=== PATIENT | female | born 1990 | race Caucasian/White ===

== ENCOUNTER 2021-04-28 13:36 | Emergency (ER) | payer OTHER ==
[~2021-04-28] VITALS: Ht 165.1 cm; Wt 89.3 kg
[2021-04-28] MEDS ORDERED: ONDANSETRON 2MG/ML, 2ML ONE (14:25)
[2021-04-28] MEDS ORDERED: HYDROmorphone 1 MG/ML, 1ML INJ ONE (14:25)
[2021-04-28] MEDS ORDERED: SODIUM CHLORIDE 0.9% 1,000ML IVBOLUS ONE (14:30)
[2021-04-28] MEDS ORDERED: ONDANSETRON 2MG/ML, 2ML IVPush ONE (14:30)
[2021-04-28] MEDS ORDERED: HYDROmorphone 1 MG/ML, 1ML INJ IVPush PRN (14:30)
[2021-04-28] MEDS ORDERED: SODIUM CHLORIDE FLUSH 10ML SYR IVF ONE (14:30)
[2021-04-28 14:39] LABS: BASOPHILS % (AUTO) 0 % (0-1); EOSINOPHILS % (AUTO) 0 % (1-7); LYMPHOCYTES % (AUTO) 9 % (22-44); MEAN CORPUSCULAR HEMOGLOBIN 31.2 pg (27.0-34.8); MEAN CORPUSCULAR HGB CONC 34.8 g/dL (32.4-35.8); MONOCYTES % (AUTO) 4 % (2-9); NEUTROPHILS % (AUTO) 87 % (42-75); PLATELET COUNT 306 x10^3/uL (130-400); RED BLOOD COUNT 4.89 x10^6/uL (3.82-5.3); RED CELL DISTRIBUTION WIDTH 13.1 % (9.6-15.2)
--- NOTE | 2021-04-28 14:49 | NUR ---
PT. IS A & O X 4 WITH A GCS OF 15. PT. HAS C/O SUDDEN ONSET CRAMPING AND SPOTTING TODAY AT APPROXIMATELY NOON. PT. REPORTS BEING 10 WEEKS . PT.'S LUNGS ARE CTA THROUGHOUT. S1S2 NOTED WITHOUT MURMURS, RUBS OR GALLOPS. PT. IS PINK, WARM AND DRY. CAP REFILL IS BRISK, LESS THAN 2 SECONDS. PT.'S ABD. IS SOFT AND FLAT WITH BS + X 4 QUADS. PULSES ARE +2 THROUGHOUT ALL EXTREMITIES. IV ACCESS ESTABLISHED AND THE PT. WAS MEDICATED FOR PAIN ORDERED. NS BOLUS IS INFUSING AND THE PT. WAS TAKEN TO ULTRASOUND. SIDERAILS REMAIN UP X 2. REPORT GIVEN TO THE ON COMING RN.
[2021-04-28 14:50] LABS: ALANINE AMINOTRANSFERASE 61 U/L (12-78); ALBUMIN 4.1 g/dL (3.4-5.0); ANION GAP 7 mmol/L (5-15); CALCIUM 9.2 mg/dL (8.5-10.1); CHLORIDE 108 mmol/L (98-107); CREATININE 0.81 mg/dL (0.55-1.02)
[2021-04-28 14:53] VITALS: BP 116/77
[2021-04-28 15:10] LABS: ALKALINE PHOSPHATASE 79 U/L (45-117); BILIRUBIN,TOTAL 0.3 mg/dL (0.2-1.0); TOTAL PROTEIN 7.6 g/dL (6.4-8.2)
--- NOTE | 2021-04-28 16:17 | NUR ---
Patient given discharge instructions and they have confirmed that they understand the instructions. Patient ambulatory with steady gait.
== END 2021-04-28 16:38 | disposition home or self-care (01) ==
LOC: ED 16:00
DX: O03.9 Complete or unspecified spontaneous abortion without complication (principal); Z90.89 Acquired absence of other organs
CPT/HCPCS: 36415; 76801; 80053; 84702; 85025; 96361; 96374; 99284; J2405; J7030